=== PATIENT | female | born 1955 | race Caucasian/White ===

== ENCOUNTER 2016-08-09 08:27 | Day surgery (SDC) | payer MEDICARE ==
[~2016-08-09] VITALS: Ht 167.6 cm; Wt 84.8 kg
[~2016-08-09 08:27] MED LIST: 0.9% Sodium Chloride 1,000 ML IV SCH; ALBU2.5V4 INHALATION; GUAI1TAB27 PO; IMI25 PO; IPRA0.2S51 IH; LACT460C PO; NORT75CA PO; OMEG-38 PO; OMEP20CA11 PO; Sodium Chloride LOK Flush 10 mL Syringe IV PRN; ZOLP10TA5 PO; fentaNYL-PF 50 mCg/mL 2 mL Inj IVPUSH PRN
[2016-08-09 08:49] VITALS: BP 122/74; PULSE 67; RESP 14; O2SAT 97
[2016-08-09 10:36] VITALS: BP 107/60; PULSE 72; RESP 14; O2SAT 99
[2016-08-09 10:46] VITALS: BP 111/57; PULSE 71; RESP 16; O2SAT 98
[2016-08-09 10:55] VITALS: BP 114/63; PULSE 68; RESP 16; O2SAT 96
--- NOTE | 2016-08-09 14:22 | ENDO ---
[address] [address] ENDOSCOPY PROCEDURE PATIENT: STEPHANIE HYLTON : 1955 MR#: [id number] ADMIT: 08/09/2016 JOB ID: [id number] DATE: 08/09/2016 PROCEDURE: Esophagogastroduodenoscopy. INDICATION: Abdominal pain. The patient's ASA classification is 2. Mallampati score is 2. MEDICATIONS: 1. Versed 5 mg. 2. Fentanyl 100 mcg. INSTRUMENT USED: GIF H 180 J. PROCEDURE DETAILS: After informed consent was obtained, the patient was brought into the GI suite, where she was placed on oxygen via nasal cannula and monitored with continuous pulse oximeter, telemetry and blood pressure monitoring. A time-out was performed. Then, she was placed in the left lateral decubitus position and medications were administered for sedation. A bite block was placed. The standard EGD scope was inserted through the bite block and advanced under direct visualization to the second portion of the duodenum without difficulty. FINDINGS: 1. Normal appearing duodenal bulb, first and second portion. Multiple random biopsies were obtained. 2. Normal-appearing pylorus, antrum and gastric body. 3. Retroflexed views in the gastric body revealed a normal-appearing cardia and fundus. 4. Multiple random biopsies were obtained throughout the antrum and body of the stomach. 5. The GE junction was at approximately 40 cm and extending to 38 cm were two short tongues of salmon-colored mucosa. Multiple biopsies were obtained. The remainder of esophagus otherwise unremarkable. IMPRESSION: C0 M2 Espinosa's. RECOMMENDATIONS: 1. PPI daily. 2. Reflux precautions. 3. Await biopsy results. 4. Proceed to colonoscopy. PROCEDURE PERFORMED: Colonoscopy. INDICATIONS: Colon cancer screening. Please see above for ASA classification, Mallampati score and medications. INSTRUMENT USED: PCF H 180 AL. PREPARATION QUALITY: Was fair. PROCEDURE DETAILS: After completion of the EGD, the patient was turned and then a digital rectal examination was performed. The colonoscope was then inserted into the rectum and advanced under direct visualization to the terminal ileum which was identified by the presence of the ileocecal valve and a villous appearing mucosa of the terminal ileum. Once the terminal ileum was reached, the colonoscope was then withdrawn back into the rectum as the mucosa and lumen were examined. In the rectum, retroflexion was performed. Following retroflexion, remaining air in the rectum was suctioned, and procedure was completed. FINDINGS: Scattered diverticula were seen throughout the entire colon. IMPRESSION: Hamlin diverticulosis. Otherwise normal examination. RECOMMENDATIONS: Repeat colonoscopy in 10 years, sooner if symptoms should dictate. COMPLICATIONS: None. ESTIMATED BLOOD LOSS: 0.
--- NOTE | 2016-08-14 17:16 | PATH ---
SURGICAL PATHOLOGY Attending Physician:Storm Wen CASE STATUS: Signed Out PATIENT NAME: STEPHANIE HYLTON PID: [id number] : 1955 DATE COLLECTED:08/09/2016 22:48 SPECIMEN: 1: Duodenum, Biopsy 2: Gastric, Biopsy 3: Esophagus, Biopsy CLINICAL HISTORY: 1). DUODENAL BIOPSY 2). GASTRIC BIOPSY 3). DISTAL ESOPHAGEAL BIOPSY FINAL DIAGNOSIS: 1. Duodenal Biopsy: Duodenal mucosa with no diagnostic abnormality. Negative for active inflammation, features of sprue, dysplasia, or malignancy. 2. Gastric Biopsy: Portions of gastric antral and body-type mucosa with mild chronic active gastritis. Possible H. pylori organisms present by H&E stain. Immunohistochemistry studies pending; results will be reported as an addendum. Negative for intestinal metaplasia, dysplasia, and malignancy. 3. Distal Esophagus, Biopsy: Squamocolumnar junctional mucosa with focal, mild active esophagitis. Fungal stain pending; results will be reported as an addendum. Negative for intestinal metaplasia. Negative for dysplasia and malignancy. The specimen consists predominantly of squamous mucosa with scant glandular elements present. ICD10: K29.7 GROSS DESCRIPTION: Received are three formalin-filled containers, each labeled with the patient' s name. 1. Received in formalin, labeled with the patient' s name and "duod", are four fragments of ruano, soft tissue ranging in size from 0.1 x 0.1 x 0.1 cm to 0.2 x 0.1 x 0.1 cm. All fragments are totally submitted in cassette 1A. 2. Received in formalin, labeled with the patient' s name and "gastric", are three fragments of ruano, soft tissue ranging in size from 0.1 x 0.1 x 0.1 cm to 0.2 x 0.1 x 0.1 cm. All fragments are totally submitted in cassette 2A. 3. Received in formalin, labeled with the patient' s name and "DE", are three fragments of ruano, soft tissue ranging in size from less than 0.1 cm by less than 0.1 cm by less than 0.1 cm to 0.1 x 0.1 x 0.1 cm. All fragments are totally submitted in cassette 3A. ([id number]) ICD-9 CODES: CPT CODES: 1: 57506 2: 78123, 97206 3: 41604, 71307 PROCEDURE/ADDENDA: Immunohistochemistry SPI Interpretation {Not Entered} Results-Comments Immunohistochemistry and Special stain Results: Part 2: An immunohistochemical stain was performed to evaluate for Helicobacter pylori organisms and is POSITIVE. A control stain showed appropriate reactivity. Part 3: An AB/PAS stain is negative for fungal organisms. A control stain showed appropriate reactivity. This test was developed and its performance characteristics determined by [facility]. It has not been cleared or approved by the [place]. Food and Drug Administration. The FDA has determined that such clearance or approval is not necessary. This test is used for clinical purposes. It should not be regarded as investigational or for research. Electronically Signed Out Megan Little MD Electronically Signed Out Hodan Alcazar MD [facility] Pathology [facility] [address], [place] [address] Technical component performed at [facility], [address], [place], [address]
== END 2016-08-09 23:59 | disposition home or self-care (01) ==
LOC: END 08:27
PROVIDERS: ATTEND Internal Medicine Gastroenterology
DX: Z12.11 Encounter for screening for malignant neoplasm of colon (principal); R10.10 Upper abdominal pain, unspecified; K57.30 Diverticulosis of large intestine without perforation or abscess without bleeding; K29.50 Unspecified chronic gastritis without bleeding
CPT/HCPCS: 43239; 99153; G0121; G0500; J7030